=== PATIENT | male | born 1980 ===

== ENCOUNTER 2017-04-25 08:20 | Inpatient (IN) | payer MEDICAID ==
--- NOTE | 2017-04-25 08:34 | ED PDOC ---
Arrival/HPI - General Time Seen by Provider: 04/25/17 08:27 Historian: Patient - History of Present Illness Narrative History of Present Illness (Text): 04/25/17 08:37 A 37 year old male smoker, who denies any significant past medical history, presents to the emergency department with a sudden onset of "heart burn", which began 2 hours prior to arrival. While driving to the emergency department the patient states the pain became more severe and developed into a squeezing chest discomfort with shortness of breath and pain radiating down his left arm. Time/Duration: 1-3 hours Symptom Onset: Sudden Symptom Course: Worsening Quality: Other (squeezing ) Activities at Onset: Light Context: Home Past Medical History - Provider Review Nursing Documentation Reviewed: Yes Family/Social History - Physician Review Nursing Documentation Reviewed: Yes Family/Social History: CAD/NE Allergies/Home Meds Allergies/Adverse Reactions: Allergies No Known Allergies Allergy (Verified 04/25/17 15:58) Home Medications: Home Meds Medication Instructions Recorded Confirmed No Known Home Med 04/25/17 04/25/17 Review of Systems - Review of Systems Constitutional: absent: Fatigue, Fevers Eyes: absent: Vision Changes Respiratory: SOB. absent: Cough Cardiovascular: Chest Pain (squeezing chest discomfort ). absent: Palpitations , Calf Pain, RUBI Gastrointestinal: Abdominal Pain. absent: Nausea, Vomiting Genitourinary Male: absent: Dysuria, Frequency Musculoskeletal: Back Pain, Neck Pain, Other (arm pain) Neurological: Focal Weakness (left arm). absent: Headache Endocrine: absent: Polyuria Physical Exam - Physical Exam Narrative Physical Exam (Text): 04/25/17 08:38 Head: Atraumatic. Normocephalic. Eyes: PERRL. EOMI. Conjunctivae are not pale. ENT: Mucous membranes are moist and intact. Oropharynx is clear and symmetric. Neck: Supple. Full ROM. No JVD. No lymphadenopathy. No meningeal signs. Nontender. Cardiovascular: Regular rate. Regular rhythm. Systolic murmur noted. Both radial pulses palpable, strong, appear equal. Pulmonary/Chest: No evidence of respiratory distress. Clear to auscultation bilaterally. No wheezing, rales or rhonchi. Abdominal: Soft and non-distended. Mild epigastric pain. No pulsatile masses. No rebound, guarding, or rigidity. No organomegaly. Good bowel sounds. Back: No CVA tenderness. Complains of mid back pain, not palapable. No lesions noted. Extremities: No edema. No cyanosis. No clubbing. Full range of motion in all extremities. No calf tenderness. Skin: Skin is pale and diaphoretic. Neurological: Alert, awake, and oriented. Reports decreased sensation down left arm, but able to flex and extend at elbow, there is weaker left hand grasp. Psychiatric: Good eye contact. Anxious. Vital Signs Reviewed: Yes Vital Signs Temp Pulse Resp BP Pulse Ox 04/25/17 09:33 73 20 123/82 99 04/25/17 09:26 68 18 136/89 99 04/25/17 08:58 98.4 F 66 17 127/92 H 98 04/25/17 08:53 63 20 127/92 H 99 04/25/17 08:46 78 20 142/95 H 99 04/25/17 08:32 98 F 89 19 161/101 H 98 Temperature: Afebrile Blood Pressure: Hypertensive Pulse: Regular Respiratory Rate: Normal Appearance: Positive for: Ill-Appearing, Uncomfortable Pain Distress: Severe Mental Status: Positive for: Alert and Oriented X 3 Medical Decision Making ED Course and Treatment: 04/25/17 08:38 Impression: A 37 year old male with chest discomfort. Differential Diagnosis included but are not limited to: aortic dissection, NE, aneurysm, reflux, PE Plan: -- EKG -- Chest X-ray -- Labs -- Aspirin, Morphine, Nitroglycerin, Famotidine -- Accucheck -- Urinalysis -- Reassess and disposition Progress Notes: Patient's history supplemented by alexus. Patient reportedly awoke at 4 am complaining of upper abdominal pain that he felt was "heartburn" although he denies prior history of this. Patient on examination complains that pain suddenly radiate to chest and down left arm. He also states pain started to develop in mid back. He is hypertensive. Initial EKG with no acute st elevations. IV established and patient administered sl ntg and iv morphine with improvement in pain from "10 to a 3". CXR is concerning for widened mediastinum. Emergency CT chest ordered due to severity of pain and clinical presentation. 04/25/17 08:56 Base on patient's presentation of widened mediastinum, there is a high clinical suspicion for aortic dissection. Placed consults to nearby facilities Cardiothoracic surgeons as none available at this facility. 04/25/17 09:26 Reassessment on return from CT. BP136/89. Chest pain significantly improved. Numbness noted to fourth and fifth digits improved but persistent. Have communicated with radiology regarding CT angio. 04/25/17 09:47 PROCEDURE: CT Angiography Chest, Abdomen and Pelvis with and without intravenous contrast Activities Officer : DR. Castillo, Buck ASHTON Report Date : 04/25/2017 09:39:47 HISTORY:chest pain radiating to back COMPARISON:None. FINDINGS: CT ANGIOGRAPHY OF THE CHEST WITH & WITHOUT CONTRAST: AORTA (CHEST AND ABDOMEN): The thoracic and abdominal aorta are unremarkable, without aneurysm, dissection or rupture. No intramural thrombus identified in the thoracic aorta on the non-contrast ct of the chest. The celiac axis, superior mesenteric artery, inferior mesenteric artery and the renal arteries are widely patent. The pelvic arteries are unremarkable. LUNGS: Clear. No nodule, mass or consolidation. MEDIASTINUM: Unremarkable. Normal caliber aorta and pulmonary arterial trunk. No aortic dissection. Normal size heart. LYMPH NODES: Unremarkable. PLEURA: Unremarkable. No pneumothorax. No pleural fluid. BONES: Unremarkable. OTHER FINDINGS: None. CT ANGIOGRAPHY OF THE ABDOMEN AND PELVIS WITH CONTRAST: LIVER: Unremarkable. No gross lesion or ductal dilatation. GALLBLADDER AND BILE DUCTS: Unremarkable. PANCREAS: Unremarkable. No gross lesion or ductal dilatation. SPLEEN: Unremarkable. ADRENALS: Unremarkable. No mass. KIDNEYS AND URETERS: Unremarkable. No hydronephrosis. No solid mass. VASCULATURE: Unremarkable. No aortic aneurysm. STOMACH AND BOWEL: Unremarkable. No obstruction. No gross mural thickening. APPENDIX: Normal appendix. PERITONEUM: Unremarkable. No free fluid. No free air. LYMPH NODES: Unremarkable. No enlarged lymph nodes. BLADDER: Unremarkable. REPRODUCTIVE: Normal prostate BONES: No acute fracture. OTHER FINDINGS: None. IMPRESSION: No evidence of thoracic or abdominal aortic dissection or aneurysmal dilatation. Unremarkable examination. Re-evaluation, chest pain resolved. No headache. No neck pain. Numbness to left hand resolved. Pulses and BP equal. Abdomen remains soft and nontender. Back pain resolved. Denies urinary symptoms. Patient will be admitted to telemetry bed as pain resolved with NTG, family hx of cad/mi/cabg. Case d/w Dr. Swartz accepts admission. 04/25/17 19:11 - Lab Interpretations Lab Results: 04/25/17 08:45 04/25/17 09:54 Lab Results 04/25/17 09:54: Sodium 139, Potassium 3.6, Chloride 101, Carbon Dioxide 23, Anion Gap 19, BUN 13, Creatinine 0.8, Est GFR ( Amer) > 60, Est GFR (Non- Af Amer) > 60, Random Glucose 140 H, Calcium 10.2, Total Bilirubin 0.4, AST 48, ALT 66 H, Alkaline Phosphatase 71, Lactate Dehydrogenase 479, Total Creatine Kinase 100, Troponin I < 0.01, Total Protein 7.3, Albumin 4.7, Globulin 2.6, Albumin/Globulin Ratio 1.8 04/25/17 08:50: PT 11.3, INR 0.98, APTT 27.8, D-Dimer, Quantitative < 200 04/25/17 08:45: WBC 7.1, RBC 4.71, Hgb 15.2, Hct 44.1, MCV 93.6, MCH 32.3, MCHC 34.5, RDW 13.0, Plt Count 175, MPV 10.7, Gran % 49.7 L, Lymph % (Auto) 42.5 H, Titus % (Auto) 5.9, Eos % (Auto) 1.6, Baso % (Auto) 0.3, Gran # 3.51, Lymph # ( Auto) 3.0, Titus # (Auto) 0.4, Eos # (Auto) 0.1, Baso # (Auto) 0.02 - RAD Interpretation Radiology Orders: 04/25/17 08:35 CHEST PORTABLE [RAD] Stat 04/25/17 08:44 ANGIOGRAPHY DISECTION PROTOCOL [CT] Stat - EKG Interpretation Interpreted by ED Physician: Yes Type: 12 lead EKG - Medication Orders Current Medication Orders: Aspirin (Ecotrin) 81 mg PO DAILY [facility] Pantoprazole Sodium (Protonix Ec Tab) 40 mg PO 0600 [facility] Discontinued Medications Aspirin (Aspirin Chewable) 81 mg PO STAT STA Stop: 04/25/17 08:36 Last Admin: 04/25/17 09:39 Dose: 81 mg Famotidine (Pepcid) 20 mg IVP STAT STA Stop: 04/25/17 08:37 Last Admin: 04/25/17 09:38 Dose: 20 mg IVP Administration Document 04/25/17 09:38 SRE (Rec: 04/25/17 09:38 SRE [id number]) Charges for Administration # of IVP Administrations 1 Morphine Sulfate (Morphine) 2 mg IVP STAT STA Stop: 04/25/17 08:37 Last Admin: 04/25/17 08:50 Dose: 2 mg MAR Pain Assessment Document 04/25/17 08:50 LA (Rec: 04/25/17 09:20 LA [id number]) Pain Reassessment Is this a pain reassessment? No Sleep Is patient sleeping during reassessment? No Presence of Pain Presence of Pain Yes IVP Administration Document 04/25/17 08:50 LA (Rec: 04/25/17 09:20 LA [id number]) Charges for Administration # of IVP Administrations 1 Nitroglycerin (Nitrostat Sl Tab) 0.4 mg SL STAT STA Stop: 04/25/17 08:36 Last Admin: 04/25/17 08:35 Dose: 0.4 mg Pantoprazole Sodium (Protonix Ec Tab) 40 mg PO STAT STA Stop: 04/25/17 11:54 Last Admin: 04/25/17 12:23 Dose: 40 mg Pneumococcal Polyvalent Vaccine (Pneumovax 23 Vaccine) 0.5 ml IM .ONCE ONE Stop: 04/25/17 16:28 - Scribe Statement The provider has reviewed the documentation as recorded by the Vamshi Bass Provider Scribe Attestation: All medical record entries made by the Scribe were at my direction and personally dictated by me. I have reviewed the chart and agree that the record accurately reflects my personal performance of the history, physical exam, medical decision making, and the department course for this patient. I have also personally directed, reviewed, and agree with the discharge instructions and disposition. Disposition/Present on Arrival - Present on Arrival Any Indicators Present on Arrival: No - Disposition Have Diagnosis and Disposition been Completed?: Yes Diagnosis: Chest pain Disposition: HOSPITALIZED Disposition Time: 10:00 Patient Plan: Admission, Telemetry Patient Problems: Current Active Problems Problem Status Onset Chest pain Acute Condition: SERIOUS
[2017-04-25] MEDS ORDERED: Morphine 2 mg/ml ISec IVP STA (08:36)
[2017-04-25] MEDS ORDERED: Metoprolol 1 mg/ml Inj IVP STA (08:43)
[2017-04-25] MEDS ORDERED: Iohexol 350 MG/100 ML VIAL ONE (08:50)
[2017-04-25 08:53] LABS: BASO # 0.02 K/mm3 (0.0-2.0); BASO % 0.3 % (0.0-3.0); EOS # 0.1 (0.0-0.7); EOS % 1.6 % (1.5-5.0); GRAN # 3.51 (1.4-6.5); GRAN % 49.7 % (50.0-68.0); HEMOGLOBIN 15.2 g/dL (14.0-18.0); LYMPH % 42.5 % (22.0-35.0); MEAN CELL VOLUME 93.6 fl (80.0-105.0); MEAN CORPUSCULAR HEMOGLOBIN 32.3 pg (25.0-35.0); MEAN CORPUSCULAR HGB CONC 34.5 g/dl (31.0-37.0); MEAN PLATELET VOLUME 10.7 fl (7.0-11.0); MONO # 0.4 (0.1-0.6); MONO % 5.9 % (1.0-6.0); RBC 4.71 10^6/uL (3.5-6.1); WHITE BLOOD COUNT 7.1 10^3/ul (4.5-11.0)
[2017-04-25 09:28] LABS: INR 0.98 (0.93-1.08); PARTIAL THROMBOPLASTIN TIME 27.8 Seconds (25.1-36.5); PROTHROMBIN TIME 11.3 SECONDS (9.4-12.5)
[2017-04-25 09:29] LABS: D DIMER < 200 ng/mL (0-243)
--- NOTE | 2017-04-25 09:40 | RAD ---
HISTORY: chest pain COMPARISON: No prior. FINDINGS: LUNGS: No active pulmonary disease. PLEURA: Mild nonspecific elevation of right hemidiaphragm. CARDIOVASCULAR: Normal heart size. Examination limited due to oblique positioning of the patient. OSSEOUS STRUCTURES: No significant abnormalities. VISUALIZED UPPER ABDOMEN: Normal. OTHER FINDINGS: None. IMPRESSION: No infiltrate. Mild nonspecific elevation of right hemidiaphragm. Otherwise unremarkable.
--- NOTE | 2017-04-25 09:41 | CT ---
PROCEDURE: CT Angiography Chest, Abdomen and Pelvis with and without intravenous contrast HISTORY: chest pain radiating to back COMPARISON: None. TECHNIQUE: Contiguous axial images of the chest, abdomen and pelvis were obtained in the phase of aortic enhancement. A noncontrast enhanced CT of the chest was also obtained to evaluate for possible intramural thrombus. Coronal and sagittal reformats were generated. IV dose administered: 130 mL Omnipaque 350 Radiation dose: Total exam DLP = 898.38 mGy-cm. This CT exam was performed using one or more of the following dose reduction techniques: Automated exposure control, adjustment of the mA and/or kV according to patient size, and/or use of iterative reconstruction technique. FINDINGS: CT ANGIOGRAPHY OF THE CHEST WITH & WITHOUT CONTRAST: AORTA (CHEST AND ABDOMEN): The thoracic and abdominal aorta are unremarkable, without aneurysm, dissection or rupture. No intramural thrombus identified in the thoracic aorta on the non-contrast ct of the chest. The celiac axis, superior mesenteric artery, inferior mesenteric artery and the renal arteries are widely patent. The pelvic arteries are unremarkable. LUNGS: Clear. No nodule, mass or consolidation. MEDIASTINUM: Unremarkable. Normal caliber aorta and pulmonary arterial trunk. No aortic dissection. Normal size heart. LYMPH NODES: Unremarkable. PLEURA: Unremarkable. No pneumothorax. No pleural fluid. BONES: Unremarkable. OTHER FINDINGS: None. CT ANGIOGRAPHY OF THE ABDOMEN AND PELVIS WITH CONTRAST: LIVER: Unremarkable. No gross lesion or ductal dilatation. GALLBLADDER AND BILE DUCTS: Unremarkable. PANCREAS: Unremarkable. No gross lesion or ductal dilatation. SPLEEN: Unremarkable. ADRENALS: Unremarkable. No mass. KIDNEYS AND URETERS: Unremarkable. No hydronephrosis. No solid mass. VASCULATURE: Unremarkable. No aortic aneurysm. STOMACH AND BOWEL: Unremarkable. No obstruction. No gross mural thickening. APPENDIX: Normal appendix. PERITONEUM: Unremarkable. No free fluid. No free air. LYMPH NODES: Unremarkable. No enlarged lymph nodes. BLADDER: Unremarkable. REPRODUCTIVE: Normal prostate BONES: No acute fracture. OTHER FINDINGS: None. IMPRESSION: No evidence of thoracic or abdominal aortic dissection or aneurysmal dilatation. Unremarkable examination.
[2017-04-25 09:52] LABS: ALB/GLOB RATIO 1.8 (1.1-1.8); ALBUMIN 4.7 g/dL (3.0-4.8); ALT/SGPT 66 U/L (7-56); AST/SGOT 48 U/L (17-59); BLOOD UREA NITROGEN 13 mg/dL (7-21); CALCIUM 10.2 mg/dL (8.4-10.5)
[2017-04-25 10:04] LABS: TROPONIN I < 0.01 ng/mL
[2017-04-25 10:51] LABS: GFR AFRICAN-AMERICAN > 60; GFR NON-AFRICAN AMERICAN > 60
[2017-04-25] MEDS ORDERED: Pantoprazole 40 mg EC Tab PO STA (11:53)
--- NOTE | 2017-04-25 12:26 | CP.PCM.HP ---
<Oscar Nicolas - Last Filed: 04/25/17 14:25> History of Present Illness - History of Present Illness History of Present Illness: CC: Chest pain 37 M with no past medical history presents to the ED complaining of chest pain. Patient states that he woke up at 4am with chest discomfort. Patient states that the chest pain got progressively worse and started to radiate to his back, neck and L hand. Pain was located in the parasternal region 10/10 in severity. He states that he first thought that it was heartburn and took Zantac at home but it did not relieve the pain. He denies this pain ever occurring before. he denied any shortness of breath or palpitations. 12 Point ROS performed and negative other stated above PMH: Denies PSH: Denies Med: none ALL: NKA SH: former smoker of 1/2 PPD for 10 years, but still uses vape, Denies ETOH use or drugs. FH: mother with CAD and quad bypass when she was 47yo Present on Admission - Present on Admission Any Indicators Present on Admission: No Review of Systems - Review of Systems All systems: reviewed and no additional remarkable complaints except Past Patient History - Infectious Disease Hx of Infectious Diseases: None - Past Social History Smoking Status: Light Smoker < 10 Cigarettes Daily - PSYCHIATRIC Hx Substance Use: No - SURGICAL HISTORY Hx Surgeries: No - ANESTHESIA Hx Anesthesia: No Hx Anesthesia Reactions: No Hx Malignant Hyperthermia: No Meds Allergies/Adverse Reactions: Allergies Allergy/AdvReac Type Severity Reaction Status Date / Time No Known Allergies Allergy Verified 04/25/17 08:34 Physical Exam - Constitutional Appears: No Acute Distress - Head Exam Head Exam: ATRAUMATIC, NORMOCEPHALIC - Eye Exam Eye Exam: EOMI - ENT Exam ENT Exam: Mucous Membranes Moist - Respiratory Exam Respiratory Exam: Clear to Auscultation Bilateral. absent: Rales, Wheezes - Cardiovascular Exam Cardiovascular Exam: REGULAR RHYTHM, RRR, +S1, +S2 - GI/Abdominal Exam GI & Abdominal Exam: Normal Bowel Sounds, Soft. absent: Tenderness - Extremities Exam Extremities exam: Negative for: calf tenderness, pedal edema - Neurological Exam Neurological exam: Alert, CN II-XII Intact, Oriented x3 - Psychiatric Exam Psychiatric exam: Normal Affect, Normal Mood - Skin Skin Exam: Dry, Intact, Warm Results - Vital Signs Recent Vital Signs: Last Vital Signs Temp 98.4 F 04/25/17 08:58 Pulse 73 04/25/17 09:33 Resp 20 04/25/17 09:33 BP 123/82 04/25/17 09:33 Pulse Ox 99 04/25/17 09:33 - Labs Result Diagrams: 04/25/17 08:45 04/25/17 09:54 Assessment & Plan - Assessment and Plan (Free Text) Assessment: 37 M with no past medical history presents to the ED complaining of chest pain r /o ACS. 1. Chest pain r/o ACS - Trop x 1 negative - EKG reviewed - NSR with no ST elevation or depression noted - Serial troponin - Cardiology consulted for recs - Echo ordered - Aspirin 81mg daily - Daily labs, TSH, Hba1c, Lipid panel 2. GI/DVT ppx - Protonix and SCDs Case and plan was reviewed and discussed in detail with Dr Swartz. <Rodo Swartz - Last Filed: 04/25/17 15:32> Results - Vital Signs Recent Vital Signs: Last Vital Signs Temp 97.9 F 04/25/17 12:17 Pulse 77 04/25/17 12:17 Resp 17 04/25/17 12:17 BP 117/74 04/25/17 12:17 Pulse Ox 99 04/25/17 09:33 - Labs Result Diagrams: 04/25/17 08:45 04/25/17 09:54 Attending/Attestation - Attestation I have personally seen and examined this patient.: Yes I have fully participated in the care of the patient.: Yes I have reviewed all pertinent clinical information: Yes Notes (Text): 04/25/17 15:30 37 year old male with no significant past medical history who presents with complaint of chest pain. Will admit to telemetry unit to rule out ACS. Risk factors include strong family history and former smoker. Serial cardiac enzymes and echocardiogram are ordered. Cardiology evaluation is requested. Continue with aspirin. Lipid panel and A1c levels are ordered. Agree with trial of PPI for possible GERD component. Counselled on smoking abstinence. Rodo Swartz MD Hospitalist.
[2017-04-25 16:10] LABS: HDL CHOLESTEROL 46 mg/dL (29-60)
[2017-04-25 16:20] LABS: LDL CHOLESTEROL 136 mg/dL (0-129)
[2017-04-25 16:21] LABS: TROPONIN I < 0.01 ng/mL
[2017-04-25 16:27] VITALS: BMI 21.5
[2017-04-25] MEDS ORDERED: Influenza Vaccine 60 mcg/0.5 mL SYR (4YR UP) IM ONE (16:27)
[2017-04-25] MEDS ORDERED: Pneumococcal 23-Valent Vaccine IM ONE (16:27)
[2017-04-25 23:40] LABS: URINE BILIRUBIN NEGATIVE (NEGATIVE); URINE BLOOD NEGATIVE (NEGATIVE); URINE GLUCOSE (UA) NEGATIVE (NEGATIVE); URINE LEUKOCYTE ESTERASE NEGATIVE Leu/uL (NEGATIVE); URINE NITRATE NEGATIVE (NEGATIVE); URINE PROTEIN NEGATIVE mg/dL (<30 mg/dL); URINE UROBILINOGEN 0.2 E.U./dL (<1 E.U./dL)
[2017-04-26 00:03] LABS: URINE APPEARANCE CLEAR (CLEAR); URINE COLOR YELLOW (YELLOW)
[2017-04-26] MEDS: Sodium Chloride 0.9% 1,000 ML IV SCH ×3 (00:25→17:42)
--- NOTE | 2017-04-26 00:34 | RAD ---
EXAM: XR Chest, 1 View CLINICAL HISTORY: 37 years old, male; Pain; Chest pain; Type not specified; Additional info: As per resident TECHNIQUE: Frontal view of the chest. COMPARISON: DX - CHEST PORTABLE 2017-04-25 08:43 FINDINGS: Lungs: No consolidation. Pleural space: No pleural effusion. No pneumothorax. Heart: No cardiomegaly. Mediastinum: Unremarkable. Bones/joints: No acute fracture. Tubes, lines and devices: Leads overlying chest. IMPRESSION: 1. No definite acute cardiopulmonary disease.
[2017-04-26] MEDS ORDERED: Acetaminophen 650mg/20.3ml solution UD PO ONE (01:06)
--- NOTE | 2017-04-26 01:14 | CP.PCM.PN ---
Subjective - Date & Time of Evaluation Date of Evaluation: 04/26/17 Time of Evaluation: 01:10 - Subjective Subjective: Called by RN at bedside with regards to hypotension with disparate limb pressures. Ordered Stat CXR which showed no widened mediastinum. Patient not complaining of chest pain at present time. Found to be orthostatic, repeat BP' s less disparate, ordered CTA but cannot do until 09A because patient had one early this AM. Patient denies any symptoms right now except for headache and mild tingling in his fourth and fifth digits on his left hand. Troponins negative X 3. Rapid flu ordered and negative. Gave patient fluids. Based on history of acute onset headaches with vomiting, ordered CT head for 05:00A. Asked RN to page as needed. Tylenol one time dose given for headache. Objective - Vital Signs/Intake and Output Vital Signs (last 24 hours): Temp Pulse Resp BP Pulse Ox 97.9 F 52 L 20 91/53 L 99 04/25/17 23:58 04/25/17 23:58 04/25/17 23:58 04/25/17 23:58 04/25/17 09:33 - Medications Medications: Current Medications Aspirin (Ecotrin) 81 mg PO DAILY [facility] Sodium Chloride (Sodium Chloride 0.9%) 1,000 mls @ 100 mls/hr IV .Q10H [facility] Last Admin: 04/26/17 00:25 Dose: 100 mls/hr Pantoprazole Sodium (Protonix Ec Tab) 40 mg PO 0600 [facility] - Labs Labs: PT 11.3 SECONDS (9.4-12.5) 04/25/17 08:50 INR 0.98 (0.93-1.08) 04/25/17 08:50 APTT 27.8 Seconds (25.1-36.5) 04/25/17 08:50
--- NOTE | 2017-04-26 01:53 | CT ---
EXAM: CT Head Without Intravenous Contrast CLINICAL HISTORY: 37 years old, male; Pain; Headache; Headache not specified; Additional info: Vomiting, headaches TECHNIQUE: Axial computed tomography images of the head/brain without intravenous contrast. All CT scans at this facility use one or more dose reduction techniques, viz.: automated exposure control; ma/kV adjustment per patient size (including targeted exams where dose is matched to indication; i.e. head); or iterative reconstruction technique. Coronal and sagittal reformatted images were created and reviewed. COMPARISON: No relevant prior studies available. FINDINGS: Brain: No intraparenchymal hemorrhage. No mass. No definite edema. Ventricles: No hydrocephalus. Bones/joints: No acute fracture. Soft tissues: Unremarkable. Sinuses: No acute sinusitis. Mastoid air cells: No mastoid effusion. Orbits: Unremarkable as visualized. Sella: Mild hyperdensity of pituitary gland. IMPRESSION: 1. Mild hyperdensity of pituitary gland, indeterminate. Recommend MRI.
[2017-04-26] MEDS: Pantoprazole 40 mg EC Tab PO SCH (05:09)
[2017-04-26] MEDS ORDERED: Sodium Chloride 0.9% 1,000 ML IV STA (05:47)
[2017-04-26 06:10] LABS: BASO # 0.02 K/mm3 (0.0-2.0); BASO % 0.3 % (0.0-3.0); EOS # 0.1 (0.0-0.7); EOS % 2.3 % (1.5-5.0); GRAN # 3.26 (1.4-6.5); HEMOGLOBIN 12.9 g/dL (14.0-18.0); LYMPH # 1.8 (1.2-3.4); LYMPH % 31.8 % (22.0-35.0); MEAN CELL VOLUME 94.5 fl (80.0-105.0); MEAN CORPUSCULAR HEMOGLOBIN 30.9 pg (25.0-35.0); MEAN CORPUSCULAR HGB CONC 32.7 g/dl (31.0-37.0); MEAN PLATELET VOLUME 10.5 fl (7.0-11.0); MONO # 0.5 (0.1-0.6); MONO % 8.6 % (1.0-6.0); RBC 4.17 10^6/uL (3.5-6.1); RED CELL DISTRIBUTION WIDTH 12.9 % (11.5-14.5); WHITE BLOOD COUNT 5.7 10^3/ul (4.5-11.0)
[2017-04-26 06:32] LABS: ALB/GLOB RATIO 1.5 (1.1-1.8); ALBUMIN 3.3 g/dL (3.0-4.8); AST/SGOT 26 U/L (17-59); BLOOD UREA NITROGEN 11 mg/dL (7-21); CALCIUM 8.7 mg/dL (8.4-10.5); GFR AFRICAN-AMERICAN > 60; GFR NON-AFRICAN AMERICAN > 60
[2017-04-26 06:33] LABS: ALT/SGPT 70 U/L (7-56)
--- NOTE | 2017-04-26 08:03 | CARD ---
APPROVED REPORT EKG Measurement Heart [id number] <Conclusion> Normal sinus rhythm Normal ECG
--- NOTE | 2017-04-26 08:05 | CARD ---
APPROVED REPORT EKG Measurement Heart [id number] <Conclusion> Normal sinus rhythm LVH by voltage, could be a normal variant Mild J-point elevations 1,L, V 5,6 No change
--- NOTE | 2017-04-26 08:19 | CARD ---
APPROVED REPORT EKG Measurement Heart [id number] <Conclusion> Sinus bradycardia Minimal voltage criteria for LVH, may be normal variant J-point Elevations No change except the rate is slower
[2017-04-26] MEDS ORDERED: Gadodiamide 287 MG/ML VIAL (15ML) IV ONE (09:54)
--- NOTE | 2017-04-26 12:10 | MRI ---
PROCEDURE: MRI BRAIN WITH AND WITHOUT CONTRAST HISTORY: Pituitary hyperdensity on CT COMPARISON: Comparison made with CT scan of the brain dated 04/26/2017 TECHNIQUE: Multiplanar, multisequence MR images of the brain were obtained with and without intravenous contrast enhancement. 15 cc of Omniscan injected for this examination. FINDINGS: HEMORRHAGE: No evidence of acute parenchymal, subarachnoid or extra-axial hemorrhage. No hemosiderin deposition seen on gradient echo weighted sequence. DWI: No evidence of an acute or early subacute infarction seen on diffusion imaging in the. BRAIN PARENCHYMA: There is a small rounded approximately 5.5 mm cc x 4.8 mm ap x 6.38mm trans, nonenhancing mass lesion within the left parasagittal and mid anterior superior margin of the pituitary gland of uncertain etiology. . 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 . Followup MRI at 3-6 month interval recommended for further evaluation and to assess stability. Pituitary infundibulum and optic chiasm unremarkable. No additional masses seen. ENHANCEMENT: No evidence of abnormal meningeal enhancement. VENTRICLES: No obstructive hydrocephalus. CRANIUM: Unremarkable. ORBITS: Grossly unremarkable. PARANASAL SINUSES/MASTOIDS: Minimal mucosal thickening seen within a few ethmoid air cells extending into the frontal sinus. There is also minimal mucosal thickening inferior margins of the right maxillary antrum. VASCULAR SYSTEM: Visualized major vascular flow voids at skull base are patent. OTHER FINDINGS: None . 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 Rule out microadenoma. See above discussion for additional details. Recommend follow-up MRI 3-6 months to assess for any changes -stability.
--- NOTE | 2017-04-26 16:28 | CP.PCM.PN ---
<Jim Purdy - Last Filed: 04/26/17 17:05> Subjective - Date & Time of Evaluation Date of Evaluation: 04/26/17 Time of Evaluation: 16:21 - Subjective Subjective: Medicine Progress Note: Patient seen and assessed at bedside. Nocturnal medicine team reports that patient was hypotensive with disparate limb pressures and with positive orthostatic blood pressure. No signs of dissection were noted on chest x-ray. CT head was ordered and showed hyperdensity of pituitary gland for which an MRI Brain and Neurology consult were placed. Patient responded well to one liter bolus and adequate stabilization in blood pressure to patients baseline was noted. Tylenol was also given for headache during this episode. Patient endorses continued intermittent dizziness but denies any new or further complaints at this time including fever, chills, chest pain, palpitations, SOB, cough, abdominal pain, N/V/D/C, urinary symptoms, or any skin changes. Objective - Vital Signs/Intake and Output Vital Signs (last 24 hours): Temp Pulse Resp BP Pulse Ox 97.8 F 69 18 106/67 97 04/26/17 12:00 04/26/17 14:00 04/26/17 12:00 04/26/17 12:00 04/26/17 05:52 Intake and Output: 04/26/17 04/26/17 06:59 18:59 Intake Total 1820 780 Balance 1820 780 - Medications Medications: Current Medications Aspirin (Ecotrin) 81 mg PO DAILY [facility] Last Admin: 04/26/17 12:58 Dose: 81 mg Atorvastatin Calcium (Lipitor) 40 mg PO DIN [facility] Sodium Chloride (Sodium Chloride 0.9%) 1,000 mls @ 100 mls/hr IV .Q10H [facility] Last Admin: 04/26/17 12:58 Dose: Not Given Pantoprazole Sodium (Protonix Ec Tab) 40 mg PO 0600 [facility] Last Admin: 04/26/17 05:09 Dose: 40 mg - Labs Labs: 04/26/17 05:40 04/26/17 05:40 PT 11.3 SECONDS (9.4-12.5) 04/25/17 08:50 INR 0.98 (0.93-1.08) 04/25/17 08:50 APTT 27.8 Seconds (25.1-36.5) 04/25/17 08:50 - Constitutional Appears: Non-toxic, No Acute Distress - Head Exam Head Exam: ATRAUMATIC, NORMOCEPHALIC - Eye Exam Eye Exam: EOMI, Normal appearance, PERRL - ENT Exam ENT Exam: Mucous Membranes Moist, Normal Exam - Neck Exam Neck Exam: Full ROM, Normal Inspection. absent: Lymphadenopathy, Meningismus - Respiratory Exam Respiratory Exam: Clear to Ausculation Bilateral, NORMAL BREATHING PATTERN. absent: Accessory Muscle Use, Decreased Breath Sounds, Rales, Rhonchi, Wheezes, Respiratory Distress - Cardiovascular Exam Cardiovascular Exam: REGULAR RHYTHM, RRR, +S1, +S2. absent: Bradycardia, Tachycardia - GI/Abdominal Exam GI & Abdominal Exam: Soft, Normal Bowel Sounds. absent: Distended, Firm, Guarding, Tenderness, Rebound - Extremities Exam Extremities Exam: Full ROM, Normal Capillary Refill, Normal Inspection. absent : Calf Tenderness, Joint Swelling, Pedal Edema, Tenderness - Back Exam Back Exam: NORMAL INSPECTION - Neurological Exam Neurological Exam: Alert, Awake, CN II-XII Intact, Oriented x3 - Psychiatric Exam Psychiatric exam: Normal Affect, Normal Mood - Skin Skin Exam: Dry, Intact, Normal Color, Warm Assessment and Plan - Assessment and Plan (Free Text) Assessment: 37 year old male with no significant past medical history who presented with chest pain. ACS was ruled out with three negative serial troponins. Patient noted to have pituitary hyperdensity on CT Head and and MRI Brain showed a small rounded mass approximately 5.5x4.8x6.38mm in the mid anterior superior margin of the pituitary gland. All measures of pituitary function have been normal thus far including TSH, FSH, and prolactin. Neurology was consulted. Plan: 1. Chest Pain -CT Angio-Dissection Protocol showed no evidence of dissection in any section of the aorta and pending interpretation by radiologist for evidence of PE -Chest X-Ray showing no active cardiopulmonary disease -EKG on admission showing normal sinus rhythm -Echo pending official interpretation -Three serial troponins negative -Total and LDL cholesterol elevated -A1c pending -Continue ASA and Lipitor -Heart Healthy Diet -Cardiology recommending outpatient stress test and Protonix on discharge -Cardiology consulted, all recommendations appreciated 2. Pituitary Mass of Unknown Etiology -Brain MRI showed a small rounded mass approximately 5.5x4.8x6.38mm in the mid anterior superior margin of the pituitary gland -CT Head showed pituitary hyperdensity -Testosterone, Prolactin, FSH, and TSH all within normal limits -AM Cortisol, and Growth Hormone all pending -Follow up and further management will be dictated by lab results -Neurology consulted, all recommendations appreciated GI Prophylaxis: Protonix DVT Prophylaxis: SCD's Patient seen and case discussed with attending, Dr. Swartz. <Rodo Swartz - Last Filed: 04/27/17 07:15> Objective - Vital Signs/Intake and Output Vital Signs (last 24 hours): Temp Pulse Resp BP Pulse Ox 97 F L 58 L 20 102/67 98 04/27/17 06:00 04/27/17 06:00 04/27/17 06:00 04/27/17 06:00 04/27/17 06:00 Intake and Output: 04/27/17 04/27/17 06:59 18:59 Intake Total 1420 Output Total 2 Balance 1418 - Medications Medications: Current Medications Aspirin (Ecotrin) 81 mg PO DAILY [facility] Last Admin: 04/26/17 12:58 Dose: 81 mg Atorvastatin Calcium (Lipitor) 40 mg PO DIN [facility] Last Admin: 04/26/17 17:42 Dose: 40 mg Sodium Chloride (Sodium Chloride 0.9%) 1,000 mls @ 100 mls/hr IV .Q10H [facility] Last Admin: 04/27/17 01:36 Dose: 100 mls/hr Pantoprazole Sodium (Protonix Ec Tab) 40 mg PO 0600 [facility] Last Admin: 04/27/17 05:21 Dose: 40 mg - Labs Labs: 04/26/17 05:40 04/26/17 05:40 PT 11.3 SECONDS (9.4-12.5) 04/25/17 08:50 INR 0.98 (0.93-1.08) 04/25/17 08:50 APTT 27.8 Seconds (25.1-36.5) 04/25/17 08:50 Attending/Attestation - Attestation I have personally seen and examined this patient.: Yes I have fully participated in the care of the patient.: Yes I have reviewed all pertinent clinical information, including history, physical exam and plan: Yes Notes (Text): 04/26/17 37 year old male with no significant past medical history who presented with complaint of chest pain. Serial cardiac enzymes were negative and ACS was ruled out. Cardiology is following and has recommended outpatient stress test. Overnight he complained of headache and lightheadedness. CT head showed pituatary hyperdensity. MRI showed possible microadenoma. Neurology evaluation is requested and labs were ordered. Continue with protonix. Counselled on smoking abstinence. Rodo Swartz MD Hospitalist.
[2017-04-26 16:41] LABS: PROLACTIN 15.9 ng/mL (3.7-17.9)
--- NOTE | 2017-04-26 18:32 | CP.PCM.CON ---
History of Present Illness - History of Present Illness History of Present Illness: Neurology Consultation Note: Mr. Blackman is a 37-year-old man with no significant past medical history, who presented to the ED complaining of chest pain radiating to the back as well as headache since . He is undergoing a cardiac work-up and a CT scan of the head was done for his headache. The CT showed an irregularity in the pituitary gland, so MRI of the brain was subsequently done. The MRI was consistent with what appears to be either a microadenoma or a Rathke's cleft cyst. Neurology was consulted to assist with the management and care. Review of Systems - Review of Systems All systems: reviewed and no additional remarkable complaints except Past Patient History - Infectious Disease Hx of Infectious Diseases: None - Past Social History Smoking Status: Former Smoker - CARDIAC Hx Cardiac Disorders: No - PULMONARY Hx Respiratory Disorders: Yes (SMOKED 1/2 PPD X 10 YRS.VAPES) - NEUROLOGICAL Hx Migraine: Yes - HEENT Hx HEENT Problems: No - RENAL Hx Chronic Kidney Disease: No - ENDOCRINE/METABOLIC Hx Endocrine Disorders: No - HEMATOLOGICAL/ONCOLOGICAL Hx Blood Disorders: No - INTEGUMENTARY Hx Dermatological Problems: No - MUSCULOSKELETAL/RHEUMATOLOGICAL Hx Musculoskeletal Disorders: No Hx Falls: No - GASTROINTESTINAL Hx Gastrointestinal Disorders: No - GENITOURINARY/GYNECOLOGICAL Hx Genitourinary Disorders: No - PSYCHIATRIC Hx Psychophysiologic Disorder: No Hx Substance Use: No - SURGICAL HISTORY Hx Surgeries: No - ANESTHESIA Hx Anesthesia: No Hx Anesthesia Reactions: No Hx Malignant Hyperthermia: No Meds Allergies/Adverse Reactions: Allergies Allergy/AdvReac Type Severity Reaction Status Date / Time No Known Allergies Allergy Verified 04/25/17 15:58 - Medications Medications: Current Medications Aspirin (Ecotrin) 81 mg PO DAILY [facility] Last Admin: 04/26/17 12:58 Dose: 81 mg Atorvastatin Calcium (Lipitor) 40 mg PO DIN [facility] Last Admin: 04/26/17 17:42 Dose: 40 mg Sodium Chloride (Sodium Chloride 0.9%) 1,000 mls @ 100 mls/hr IV .Q10H [facility] Last Admin: 04/26/17 17:42 Dose: 100 mls/hr Pantoprazole Sodium (Protonix Ec Tab) 40 mg PO 0600 [facility] Last Admin: 04/26/17 05:09 Dose: 40 mg Physical Exam - Constitutional Appears: Well - Head Exam Head Exam: ATRAUMATIC, NORMAL INSPECTION, NORMOCEPHALIC - Eye Exam Eye Exam: EOMI, Normal appearance, PERRL - ENT Exam ENT Exam: Mucous Membranes Moist, Normal Exam - Neck Exam Neck exam: Positive for: Normal Inspection - Cardiovascular Exam Cardiovascular Exam: REGULAR RHYTHM, +S1, +S2 - GI/Abdominal Exam GI & Abdominal Exam: Normal Bowel Sounds, Soft. absent: Tenderness - Rectal Exam Rectal Exam: Deferred - Back Exam Back exam: NORMAL INSPECTION - Neurological Exam Neurological exam: Alert, CN II-XII Intact, Normal Gait, Oriented x3, Reflexes Normal Results - Vital Signs Recent Vital Signs: Last Vital Signs Temp 98 F 04/26/17 17:24 Pulse 67 04/26/17 17:24 Resp 18 04/26/17 17:24 BP 105/66 04/26/17 17:24 Pulse Ox 97 04/26/17 17:24 - Labs Result Diagrams: 04/26/17 05:40 04/26/17 05:40 Labs: Laboratory Results - last 24 hr 04/25/17 04/25/17 04/26/17 22:30 23:10 00:15 WBC RBC Hgb Hct MCV MCH MCHC RDW Plt Count MPV Gran % Lymph % (Auto) [place] % (Auto) Eos % (Auto) Baso % (Auto) Gran # Lymph # (Auto) [place] # (Auto) Eos # (Auto) Baso # (Auto) Sodium Potassium Chloride Carbon Dioxide Anion Gap BUN Creatinine Est GFR ( Amer) Est GFR (Non-Af Amer) Random Glucose Calcium Total Bilirubin AST ALT Alkaline Phosphatase Troponin I < 0.01 Total Protein Albumin Globulin Albumin/Globulin Ratio FSH 3rd Generation Prolactin Testosterone Level Urine Color Yellow Urine Appearance Clear Urine pH 7.0 Ur Specific Dana 1.010 Urine Protein Negative Urine Glucose (UA) Negative Urine Ketones Negative Urine Blood Negative Urine Nitrate Negative Urine Bilirubin Negative Urine Urobilinogen 0.2 Ur Leukocyte Esterase Negative Influenza Typ A,B (EIA) Negative for flu a/b 04/26/17 04/26/17 04/26/17 05:40 05:40 06:30 WBC 5.7 RBC 4.17 Hgb 12.9 L D Hct 39.4 L MCV 94.5 MCH 30.9 MCHC 32.7 RDW 12.9 Plt Count 136 MPV 10.5 Gran % 57.0 Lymph % (Auto) 31.8 [place] % (Auto) 8.6 H Eos % (Auto) 2.3 Baso % (Auto) 0.3 Gran # 3.26 Lymph # (Auto) 1.8 [place] # (Auto) 0.5 Eos # (Auto) 0.1 Baso # (Auto) 0.02 Sodium 140 Potassium 3.9 Chloride 105 Carbon Dioxide 26 Anion Gap 13 BUN 11 Creatinine 0.8 Est GFR ( Amer) > 60 Est GFR (Non-Af Amer) > 60 Random Glucose 96 Calcium 8.7 Total Bilirubin 0.3 AST 26 ALT 70 H Alkaline Phosphatase 40 Troponin I Total Protein 5.5 L Albumin 3.3 Globulin 2.2 Albumin/Globulin Ratio 1.5 FSH 3rd Generation 8.0 Prolactin 15.9 Testosterone Level 431 Urine Color Urine Appearance Urine pH Ur Specific Dana Urine Protein Urine Glucose (UA) Urine Ketones Urine Blood Urine Nitrate Urine Bilirubin Urine Urobilinogen Ur Leukocyte Esterase Influenza Typ A,B (EIA) Assessment & Plan (1) Pituitary abnormality Assessment and Plan: Based on the MRI, this is most likely a microadenoma or a Rathke's cyst. I recommend follow-up with an brain MRI with and without contrast in 6 months. I will order labs to check for pituitary hormones. The patient can follow-up with myself or Dr. Tadeo Tran as an outpatient. Thank you. Status: Chronic Priority: Medium
[2017-04-27] MEDS: Sodium Chloride 0.9% 1,000 ML IV SCH (01:36)
[2017-04-27] MEDS: Pantoprazole 40 mg EC Tab PO SCH (05:21)
[2017-04-27 06:05] VITALS: BP 102/67; RESP 20; TEMP 97; O2SAT 98
[2017-04-27 07:33] LABS: T4 6.6 ug/dL (5.5-11.0)
[2017-04-27 07:45] LABS: BASO # 0.01 K/mm3 (0.0-2.0); BASO % 0.2 % (0.0-3.0); EOS # 0.1 (0.0-0.7); EOS % 2.6 % (1.5-5.0); GRAN # 2.6 (1.4-6.5); GRAN % 51.8 % (50.0-68.0); HEMOGLOBIN 12.7 g/dL (14.0-18.0); LYMPH # 1.9 (1.2-3.4); LYMPH % 37.6 % (22.0-35.0); MEAN CELL VOLUME 94.9 fl (80.0-105.0); MEAN CORPUSCULAR HEMOGLOBIN 31.1 pg (25.0-35.0); MEAN CORPUSCULAR HGB CONC 32.8 g/dl (31.0-37.0); MEAN PLATELET VOLUME 11.3 fl (7.0-11.0); MONO # 0.4 (0.1-0.6); MONO % 7.8 % (1.0-6.0); RBC 4.08 10^6/uL (3.5-6.1); RED CELL DISTRIBUTION WIDTH 12.9 % (11.5-14.5)
[2017-04-27 07:47] LABS: T3 1.11 ng/mL (0.97-1.69)
[2017-04-27 08:20] LABS: ALB/GLOB RATIO 1.6 (1.1-1.8); ALBUMIN 3.3 g/dL (3.0-4.8); ALT/SGPT 54 U/L (7-56); AST/SGOT 19 U/L (17-59); BLOOD UREA NITROGEN 11 mg/dL (7-21); CALCIUM 8.9 mg/dL (8.4-10.5); GFR AFRICAN-AMERICAN > 60; GFR NON-AFRICAN AMERICAN > 60
--- NOTE | 2017-04-27 09:51 | CON ---
DATE: 04/25/2017 LOCATION: The patient in room 264, bed 1. REASON FOR CONSULTATION: Chest pain. HISTORY OF PRESENT ILLNESS: A 37-year-old male, admitted with a history that, at midnight he took a heavy meal, a very spicy and fatty meal, and soon after that he started getting pressure type mid-chest pain. He also felt numbness in the left arm. The patient denies diaphoresis. He also felt nausea. Denies any diarrhea. The patient had no history of prior exertional chest pain or any other medical problem. This pain was there for several hours before he came to emergency room. PAST MEDICAL HISTORY: Not significant. PERSONAL HISTORY: Denies smoking, denies drinking. ALLERGIES: DENIES. FAMILY HISTORY: Mother had CAD at age of 48 and she had coronary artery bypass surgery. HOME MEDICATIONS: The patient is not taking any medicine at home. REVIEW OF SYSTEMS: All the systems reviewed; positive mentioned in the history, others were negative. PHYSICAL EXAMINATION: VITAL SIGNS: Blood pressure is 117/74, respirations 17, pulse 77, temperature 97.9. HEENT: Head is normocephalic. Eyes: Pupils normal. Conjunctivae normal. Nose and throat normal. NECK: JVP low. Carotids equal. THORAX: AP diameter normal. LUNGS: Clear. CARDIOVASCULAR: S1 and S2. ABDOMEN: Soft. No tenderness. No organomegaly. Bowel sounds are normal. EXTREMITIES: No clubbing. No cyanosis. LAB: EKG. RSR. Iso Enzymes Negative. Chest Xray Clear. CT Angio Chest Abdomen No Evidence of Dissection. PLAN: Probably Chest Pain related to Oesophageal Spasm OR Gastro-Oesophageal Reflux. Repeat Troponine. Continue Protonix. Nuclear Stress Test and ECHO as outpatient. Maeagn Romero MD MTDD
--- NOTE | 2017-04-27 10:19 | PN ---
DATE: 04/26/2017 LOCATION: The patient on 264, bed 1. REASON FOR CONSULTATION: Chest pain. HISTORY OF PRESENT ILLNESS: I dictated consult yesterday, but it is not back yet in the computer; however, patient was admitted with a chest pain, which was followed after eating heavy spicy oily meal by patient around 11:00 to 12:00 midnight and around 3:00 a.m., he woke up with chest pain and he felt like tightness in the chest. Pain has continued till he came to the Emergency Room and patient was given medication and he . Patient's EKG was regular sinus rhythm. Patient now is chest pain free. Denies any shortness of breath or palpitations. PAST MEDICAL HISTORY: Negative. PERSONAL HISTORY: Former smoker, about half pack about 10 years, some times uses drinking. FAMILY HISTORY: Mother has coronary artery disease, had bypass surgery at age 49. MEDICATIONS AT HOME: Patient was not on any medications at home. PHYSICAL EXAMINATION: VITAL SIGNS: The blood pressure is 100/62, respirations 20, pulse 71, temperature 98.4. HEENT: Head is normocephalic. Eyes: Pupils normal. Conjunctivae normal. Nose and throat normal. NECK: JVP low. Carotid equal. THORAX: AP diameter normal. LUNGS: Clear. CARDIOVASCULAR: S1, S2. ABDOMEN: Soft, nontender. There is no organomegaly. Bowel sounds normal. EXTREMITIES: No clubbing, no cyanosis. LABORATORY DATA: WBC 5.7, hemoglobin 12.9, hematocrit 39.4 and platelets 136. Sodium 140; potassium 3.9; BUN 11; creatinine 0.8; sugar 96; AST 26; ALT 70; total protein 5.5, yesterday was 7.3; albumin 3.3; cholesterol yesterday was 215 with LDL 136; triglycerides 152; TSH 1.69; troponin x3 was negative. Chest x-ray clear. CT angio for aorta was negative. DIAGNOSES: Chest pain, most likely , gastroesophageal reflux disease, high cholesterol. PLAN: Patient continue Protonix 40 daily and patient should recheck lipid profile after 2 months. If cholesterol still high, then statins can be added. Patient also advised to do nuclear stress test and echocardiogram as outpatient. I understand echo has been do already yesterday. We will follow the report . Maegan Romero MD [facility] # [id number]
[2017-04-27 12:39] VITALS: PULSE 62
--- NOTE | 2017-04-27 13:02 | CP.PCM.PN ---
Subjective - Date & Time of Evaluation Date of Evaluation: 04/27/17 Time of Evaluation: 10:50 - Subjective Subjective: Neuro progress note: Pt seen and examined at bedside. No acute events overnight. Pt states that his headaches has much improved. No other complaints. 12 Point ROS performed and neg other than stated above. Objective - Vital Signs/Intake and Output Vital Signs (last 24 hours): Temp Pulse Resp BP Pulse Ox 97 F L 62 20 102/67 98 04/27/17 06:00 04/27/17 10:00 04/27/17 06:00 04/27/17 06:00 04/27/17 06:00 Intake and Output: 04/27/17 04/27/17 06:59 18:59 Intake Total 1420 Output Total 2 Balance 1418 - Medications Medications: Current Medications Aspirin (Ecotrin) 81 mg PO DAILY [facility] Last Admin: 04/27/17 10:21 Dose: 81 mg Atorvastatin Calcium (Lipitor) 40 mg PO DIN [facility] Last Admin: 04/26/17 17:42 Dose: 40 mg Sodium Chloride (Sodium Chloride 0.9%) 1,000 mls @ 100 mls/hr IV .Q10H [facility] Last Admin: 04/27/17 01:36 Dose: 100 mls/hr Pantoprazole Sodium (Protonix Ec Tab) 40 mg PO 0600 [facility] Last Admin: 04/27/17 05:21 Dose: 40 mg - Labs Labs: 04/27/17 07:30 04/27/17 07:50 PT 11.3 SECONDS (9.4-12.5) 04/25/17 08:50 INR 0.98 (0.93-1.08) 04/25/17 08:50 APTT 27.8 Seconds (25.1-36.5) 04/25/17 08:50 - Constitutional Appears: No Acute Distress - Eye Exam Eye Exam: EOMI, PERRL Pupil Exam: NORMAL ACCOMODATION - Neurological Exam Neurological Exam: Alert, Awake, Oriented x3 Neuro motor strength exam: Left Upper Extremity: 5, Right Upper Extremity: 5, Left Lower Extremity: 5, Right Lower Extremity: 5 Assessment and Plan - Assessment and Plan (Free Text) Assessment: 37M presented to the ED complaining of chest pain as well as headache. CTH showed an irregularity in the pituitary gland, so MRI of the brain was consistent with what appears to be either a microadenoma or a Rathke's cleft cyst. - Outpatient follow up with repeat imaging in 3-6 months - F/u with neurosurgery yearly as an outpatient - Pituitary hormones w/u wnl - Continue Aspirin and Lipitor - Lifestyle modification Case and plan was reviewed and discussed with Dr Brown.
--- NOTE | 2017-04-27 15:45 | CARD ---
APPROVED REPORT EXAM: Two-dimensional and M-mode echocardiogram with Doppler and color Doppler. INDICATION 2D DIMENSIONS IVSd1.0 (0.7-1.1cm)LVDd4.7 (3.9-5.9cm) PWd1.2 (0.7-1.1cm)LVDs3.1 (2.5-4.0cm) FS (%) 33.1 %LVEF (%)61.7 (>50%) M-Mode DIMENSIONS Left Atrium (MM)3.00 (2.5-4.0cm)Aortic Root3.50 (2.2-3.7cm) Aortic Cusp Exc.2.30 (1.5-2.0cm) Aortic Valve AoV Peak Nwriezqs482.0cm/Elke Peak GR.8mmHg Mitral Valve MV E Zanwibyw13.0cm/sMV A Azacvezc41.4cm/sE/A ratio1.7 TDI Lateral E' Peak V16.60cm/sMedial E' Peak V10.80cm/sE/Lateral E'4.6 E/Medial E'7.0 Tricuspid Valve TR Peak [id number]/sRAP [id number] Peak Gr.27mmHg [id number] LEFT VENTRICLE The left ventricle is normal size. There is normal left ventricular wall thickness. The left ventricular function is normal. The left ventricular ejection fraction is within the normal range. There is normal LV segmental wall motion. The left ventricular diastolic function is normal. No left ventricle thrombus noted on this study. There is no ventricular septal defect visualized. There is no left ventricular aneurysm. There is no mass noted in the left ventricle. RIGHT VENTRICLE The right ventricle is normal size. There is normal right ventricular wall thickness. The right ventricular systolic function is normal. ATRIA The left atrium size is normal. The right atrium size is normal. The interatrial septum is intact with no evidence for an atrial septal defect. AORTIC VALVE The aortic valve is normal in structure. No aortic regurgitation is present. There is no aortic valvular stenosis. There is no aortic valvular vegetation. MITRAL VALVE The mitral valve is normal in structure. Mitral regurgitation is trace. There is no mitral valve stenosis. There is no evidence of mitral valve prolapse. TRICUSPID VALVE There is trace tricuspid regurgitation. There is no tricuspid valve stenosis. There is no tricuspid valve prolapse or vegetation. PULMONIC VALVE The pulmonary valve is normal in structure. There is trace pulmonic valvular regurgitation. There is no pulmonic valvular stenosis. GREAT VESSELS The aortic root is normal in size. The ascending aorta is normal in size. The pulmonary artery is normal. The IVC is normal in size and collapses >50% with inspiration. PERICARDIAL EFFUSION There is no pleural effusion. There is no pericardial effusion. <Conclusion> Normal chamber size. EF-55 -60% Trace MR/TR/PI RVSP-37 mm of Hg.
[2017-04-27 17:00] LABS: FSH 6.8 mIU/mL; PROLACTIN 26.9 ng/mL (3.7-17.9)
--- NOTE | 2017-04-27 19:27 | CP.PCM.DIS ---
Provider - Provider Date of Admission: 04/25/17 10:26 Attending physician: Rodo Swartz MD Primary care physician: Quita Heller MD Consults: Cardio: Heather Neuro: Patrice Time Spent in preparation of Discharge (in minutes): 41 Hospital Course - Lab Results Lab Results: Most Recent Lab Values WBC 5.0 10^3/ul (4.5-11.0) 04/27/17 07:30 RBC 4.08 10^6/uL (3.5-6.1) 04/27/17 07:30 Hgb 12.7 g/dL (14.0-18.0) L 04/27/17 07:30 Hct 38.7 % (42.0-52.0) L 04/27/17 07:30 MCV 94.9 fl (80.0-105.0) 04/27/17 07:30 MCH 31.1 pg (25.0-35.0) 04/27/17 07:30 MCHC 32.8 g/dl (31.0-37.0) 04/27/17 07:30 RDW 12.9 % (11.5-14.5) 04/27/17 07:30 Plt Count 144 10^3/uL (120.0-450.0) 04/27/17 07:30 MPV 11.3 fl (7.0-11.0) H 04/27/17 07:30 Gran % 51.8 % (50.0-68.0) 04/27/17 07:30 Lymph % (Auto) 37.6 % (22.0-35.0) H 04/27/17 07:30 [place] % (Auto) 7.8 % (1.0-6.0) H 04/27/17 07:30 Eos % (Auto) 2.6 % (1.5-5.0) 04/27/17 07:30 Baso % (Auto) 0.2 % (0.0-3.0) 04/27/17 07:30 Gran # 2.60 (1.4-6.5) 04/27/17 07:30 Lymph # (Auto) 1.9 (1.2-3.4) 04/27/17 07:30 [place] # (Auto) 0.4 (0.1-0.6) 04/27/17 07:30 Eos # (Auto) 0.1 (0.0-0.7) 04/27/17 07:30 Baso # (Auto) 0.01 K/mm3 (0.0-2.0) 04/27/17 07:30 PT 11.3 SECONDS (9.4-12.5) 04/25/17 08:50 INR 0.98 (0.93-1.08) 04/25/17 08:50 APTT 27.8 Seconds (25.1-36.5) 04/25/17 08:50 D-Dimer, Quantitative < 200 ng/mL (0-243) 04/25/17 08:50 Sodium 140 mmol/L (132-148) 04/27/17 07:50 Potassium 4.0 mmol/L (3.6-5.0) 04/27/17 07:50 Chloride 106 mmol/L (98-107) 04/27/17 07:50 Carbon Dioxide 25 mmol/L (21-33) 04/27/17 07:50 Anion Gap 13 (10-20) 04/27/17 07:50 BUN 11 mg/dL (7-21) 04/27/17 07:50 Creatinine 0.7 mg/dl (0.8-1.5) L 04/27/17 07:50 Est GFR ( Amer) > 60 04/27/17 07:50 Est GFR (Non-Af Amer) > 60 04/27/17 07:50 Random Glucose 92 mg/dL (70-110) 04/27/17 07:50 Hemoglobin A1c 5.2 % (4.2-6.5) 04/26/17 05:40 Calcium 8.9 mg/dL (8.4-10.5) 04/27/17 07:50 Total Bilirubin 0.3 mg/dL (0.2-1.3) 04/27/17 07:50 AST 19 U/L (17-59) 04/27/17 07:50 ALT 54 U/L (7-56) 04/27/17 07:50 Alkaline Phosphatase 38 U/L (38-126) 04/27/17 07:50 Lactate Dehydrogenase 479 U/L (333-699) 04/25/17 09:54 Total Creatine Kinase 100 U/L (35-230) 04/25/17 09:54 Troponin I < 0.01 ng/mL 04/25/17 22:30 Total Protein 5.4 g/dL (5.8-8.3) L 04/27/17 07:50 Albumin 3.3 g/dL (3.0-4.8) 04/27/17 07:50 Globulin 2.1 gm/dL 04/27/17 07:50 Albumin/Globulin Ratio 1.6 (1.1-1.8) 04/27/17 07:50 Triglycerides 152 mg/dL (35-160) 04/25/17 15:55 Cholesterol 215 mg/dL (130-200) H 04/25/17 15:55 LDL Cholesterol Direct 136 mg/dL (0-129) H 04/25/17 15:55 HDL Cholesterol 46 mg/dL (29-60) 04/25/17 15:55 Thyroxine (T4) 6.6 ug/dL (5.5-11.0) 04/27/17 05:40 Total T3 1.11 ng/mL (0.97-1.69) 04/27/17 05:40 TSH 3rd Generation 1.37 mIU/mL (0.46-4.68) 04/27/17 05:40 FSH 3rd Generation 6.8 mIU/mL 04/27/17 05:40 Prolactin 26.9 ng/mL (3.7-17.9) H 04/27/17 05:40 Testosterone Level 431 ng/mL 04/26/17 06:30 Cortisol AM Sample 17.9 ug/dL (4.46-22.7) 04/27/17 05:40 Urine Color Yellow (YELLOW) 04/25/17 23:10 Urine Appearance Clear (CLEAR) 04/25/17 23:10 Urine pH 7.0 (4.7-8.0) 04/25/17 23:10 Ur Specific [place] 1.010 (1.005-1.035) 04/25/17 23:10 Urine Protein Negative mg/dL (<30 mg/dL) 04/25/17 23:10 Urine Glucose (UA) Negative mg/dL (NEGATIVE) 04/25/17 23:10 Urine Ketones Negative mg/dL (NEGATIVE) 04/25/17 23:10 Urine Blood Negative (NEGATIVE) 04/25/17 23:10 Urine Nitrate Negative (NEGATIVE) 04/25/17 23:10 Urine Bilirubin Negative (NEGATIVE) 04/25/17 23:10 Urine Urobilinogen 0.2 E.U./dL (<1 E.U./dL) 04/25/17 23:10 Ur Leukocyte Esterase Negative Trish/uL (NEGATIVE) 04/25/17 23:10 Influenza Typ A,B (EIA) Negative for flu a/b (NEGATIVE) 04/26/17 00:15 - Hospital Course Hospital Course: 37 year old male with no significant past medical history who presented with chest pain. CT Angio-Dissection Protocol showed no evidence of dissection in any section of the aorta. Chest X-Ray showed no active cardiopulmonary disease. ACS was suspected and ruled out with three negative serial troponins. EKG showed normal sinus rhythm. Cardiology was consulted and recommended that patient have outpatient nuclear stress test and to be sent home on PO protonix. Patient was noted to be hypotensive on 04/25 and noted to have pituitary hyperdensity on CT Head and and MRI Brain showed a small rounded mass approximately 5.5x4.8x6.38mm in the mid anterior superior margin of the pituitary gland that were ordered. All measures of pituitary function were within normal limits with growth hormone pending. Neurology was consulted and recommended patient be started on ASA and Lipitor and to have repeat MRI Brain in 6-12 months. Patient was discharged on 04/27/17 with prescriptions for ASA, protonix and lipitor and with instructions for repeat MRI, nuclear stress test and follow up with PMD. Patient was told that he would be notified of results of Echo should they be abnormal. Protonix and SCD's were used as prophylaxis. - Date & Time of H&P Date of H&P: 04/25/17 Time of H&P: 12:10 Discharge Exam - Head Exam Head Exam: ATRAUMATIC, NORMAL INSPECTION, NORMOCEPHALIC - Eye Exam Eye Exam: EOMI, Normal appearance, PERRL Pupil Exam: NORMAL ACCOMODATION, PERRL - ENT Exam ENT Exam: Mucous Membranes Moist, Normal Exam - Neck Exam Neck exam: Full Rom, Normal Inspection - Respiratory Exam Respiratory Exam: Clear to PA & Lateral, NORMAL BREATHING PATTERN, UNREMARKABLE - Cardiovascular Exam Cardiovascular Exam: REGULAR RHYTHM, RRR, +S1, +S2 - GI/Abdominal Exam GI & Abdominal Exam: Normal Bowel Sounds, Unremarkable - Extremities Exam Extremities exam: full ROM, normal capillary refill, normal inspection, pedal pulses present - Back Exam Back exam: NORMAL INSPECTION - Neurological Exam Neurological exam: Alert, CN II-XII Intact, Normal Gait, Oriented x3, Reflexes Normal - Psychiatric Exam Psychiatric exam: Normal Affect, Normal Mood - Skin Skin Exam: Dry, Intact, Normal Color, Warm Discharge Plan - Discharge Medications Prescriptions: Aspirin [Aspirin Chewable] 81 mg PO DAILY #14 ctb Atorvastatin [Lipitor] 40 mg PO DIN #14 tab Pantoprazole [Protonix] 40 mg PO DAILY #14 ect - Follow Up Plan Condition: SERIOUS Disposition: HOME/ ROUTINE Instructions: Pituitary Adenoma, Chest Pain (DC), Nuclear Heart Testing Additional Instructions: Cardiology is recommending that you follow up with them as an outpatient for nuclear stress testing. Contact information for their office and information regarding nuclear stress testing is provided in this paperwork. Neurology is recommending that you follow up with them as an outpatient in 6-12 months for a repeat MRI Brain. Contact information for their office and information regarding pituitary masses have been provided in this paperwork. Echocardiogram supply manager interpretation, Growth hormone levels and AM Cortisol levels are pending. We will call you should these come back abnormal. If you do not hear from us within one week, you may call medical records to obtain these results. Please follow up with your PCP within one week Please take all medications as prescribed Should your symptoms persist or worsen, please seek emergency medical attention Referrals: Javi Ibrahim MD [Staff Provider] - Quita Heller MD [Primary Care Provider] - Maegan Romero MD [Staff Provider] -
--- NOTE | 2017-04-28 07:42 | PN ---
DATE: 04/27/2017 REASON FOR CONSULTATION: Chest pain. SUBJECTIVE: The patient denies any chest pain, shortness of breath or any palpitation. He occasionally feel dizzy. OBJECTIVE: GENERAL: Not in apparent distress. VITAL SIGNS: As follows: Temperature afebrile, heart rate 62, blood pressure 102/67. HEENT: PERRLA. Extraocular muscles intact. NECK: Supple. No carotid bruit or thyromegaly. CHEST: Clear to auscultation. HEART: S1, S2 regular. ABDOMEN: Soft. EXTREMITIES: Clubbing and cyanosis negative. LABORATORY DATA: Blood workup as follows: WBC 5, hemoglobin , hematocrit 38.7 and platelet count 144. Chemistry shows sodium 140, potassium 4, chloride 106, carbon dioxide 25, anion gap of 13, BUN 11, creatinine 0.7, total protein 5.4, albumin 3.3, albumin-globulin ratio 1.6. TSH 1.37. MRI of the brain showed small non-enhancing round mass in the left and a mid anterior superior margin of the pituitary gland with uncertain etiology, represent Rathke's pouch, cleft. IMPRESSION: Atypical chest pain, most likely musculoskeletal; esophageal reflux; high cholesterol. RECOMMENDATIONS: Continue neuro workup. If patient is stable from neuro point of view, patient can be discharged home. As per neuro, 3 to 6 months followup with MRI. stable, patient is okayed to be discharged from Cardiology point of view. Thank you, for providing us the opportunity in taking care of the patient, Chad Blackman. Maegan Johnson MD cc:
== END 2017-04-27 13:37 | disposition home or self-care (01) | DRG 183 ==
LOC: ED 08:20 → ERH 10:26 → 2RNO 11:32
PROVIDERS: ADMIT Internal Medicine; ATTEND Internal Medicine
DX: K21.9 Gastro-esophageal reflux disease without esophagitis (principal); E23.6 Other disorders of pituitary gland; R07.89 Other chest pain; I95.1 Orthostatic hypotension; E78.00 Pure hypercholesterolemia, unspecified; F17.290 Nicotine dependence, other tobacco product, uncomplicated